=== PATIENT | female | born 1970 | race Two or more races ===

== ENCOUNTER 2024-11-17 15:47 | Outpatient (REF) | payer MEDICAID, SELFPAY ==
[2024-11-17 15:37] LABS: HCT 41.0 % (36.0-46.0); HGB 13.5 g/dL (11.2-15.7); MCH 29.2 pg (27.0-33.0); MCHC 32.9 % (32.0-36.0); MCV 89 fL (80-95); MPV 10.8 fL (8.0-11.0); Platelet Count 197 10^3/uL (130-400); RBC 4.63 10^6/uL (3.93-5.22); RDW 13.5 % (11.7-14.6); RDW-SD 43.7 fL; WBC 6.34 10^3/uL (4.4-10.8)
[2024-11-17 15:58] LABS: ALT 133 U/L (14-59); AST 96 U/L (15-37); Albumin 4.6 g/dL (3.4-5.0); Alkaline Phosphatase 106 U/L (46-116); Anion Gap 9.5 mmol/L (3-11); BUN 11 mg/dL (7-18); Bilirubin, Total 0.6 mg/dL (0.2-1.0); CO2 30.5 mmol/L (21.0-32.0); Calcium 10.3 mg/dL (8.5-10.1); Calculated LDL 84 mg/dL (<100); Chloride 98 mmol/L (98-107); Cholesterol 216 mg/dL (<200); Estimated GFR 67.36 (mL/min/1.73m2); Glucose 102 mg/dL (74-106); HDL Cholesterol 107 mg/dL (>or=50); Magnesium 2.0 mg/dL (1.8-2.4); Potassium 4.0 mmol/L (3.5-5.1); Sodium 138 mmol/L (136-145); TSH 91.80 uIU/mL (0.36-3.74); Total Protein 8.4 g/dL (6.4-8.2); Triglyceride 125 mg/dL (<150)
[2024-11-17 17:18] LABS: Hemoglobin A1C 6.6 % (<5.7)
[2024-11-17 22:39] LABS: T3,Free 0.9 pg/mL (2.8-5.3)
== END 2024-11-17 15:48 | disposition home or self-care (01) ==
LOC: NCHCN 15:47
PROVIDERS: Visit Provider Physician Assistant
DX: E11.9 Type 2 diabetes mellitus without complications (principal); R25.3 Fasciculation; E78.5 Hyperlipidemia, unspecified; E03.9 Hypothyroidism, unspecified
CPT/HCPCS: 80053; 80061; 85027; 83036; 83735; 84439; 84443; 84481

== ENCOUNTER 2025-02-19 09:40 | Outpatient (REF) | payer MEDICAID, SELFPAY ==
[2025-02-19 16:23] LABS: TSH 0.29 uIU/mL (0.36-3.74)
[2025-02-19 16:24] LABS: Microalb ug/mg Crea 9.5 ug/mg Cr
[2025-02-19 17:03] LABS: Hemoglobin A1C 6.5 % (<5.7)
[2025-02-19 22:22] LABS: T3,Free 3.4 pg/mL (2.8-5.3)
== END 2025-02-19 09:41 | disposition home or self-care (01) ==
LOC: NCHCN 09:40
PROVIDERS: Visit Provider Physician Assistant
DX: E11.9 Type 2 diabetes mellitus without complications (principal); E03.9 Hypothyroidism, unspecified
CPT/HCPCS: 82043; 82570; 83036; 84439; 84443; 84481

== ENCOUNTER 2025-03-04 16:48 | Outpatient (REF) | payer MEDICAID, SELFPAY ==
--- NOTE | 2025-03-04 08:15 | PAPFT_PTH ---
PATIENT: Taryn Neff LOC: [facility]#:[id number] AGE/SX: 54/F ROOM: RE03/04/[address]: ISAAC: 1970 BED: DIS: 03/04/2025 SPEC #: [id number] RECD: 03/04/25 18:29 STATUS: FREDERIC TAFOYA #: [id number] JOE: 03/04/25 08:[address]: Tracy Haley DEPT: [facility] Cytology RECD BY: Noemi Gauthier ENTERED: 03/04/25 18:29 SP TYPE: PAPFT MALKA DR: Unknown,Unknown Tissues: 1 - CX/ENDOCX FOR PAP SMEARS Procedures: PAP THIN PREP/[facility] Screening HPV DNA PROBE Comments: [id number] (HPV 16 & 18/45)
== END 2025-03-04 16:49 | disposition home or self-care (01) ==
LOC: NCHCN 16:48
PROVIDERS: Visit Provider Family Medicine
DX: Z12.4 Encounter for screening for malignant neoplasm of cervix (principal)
CPT/HCPCS: 88142; 87624